=== PATIENT | male | born 1950 | race Caucasian/White ===

== ENCOUNTER 2017-06-01 05:50 | Day surgery (SDC) | payer OTHER ==
[~2017-06-01] VITALS: Ht 175.3 cm; Wt 97.2 kg
[~2017-06-01 05:50] MED LIST: GABA-827 PO; LOSA50TA6 PO; LUBI24CA7 PO; [UNRECOGNIZED DRUG - CODE] SL
[2017-06-01] MEDS ORDERED: LACTATED RINGERS 1,000 ML IV SCH (06:19)
[2017-06-01 06:20] VITALS: BP 141/82
[2017-06-01] MEDS ORDERED: BUPIVACAINE/PF-EPI 0.25% 1:200K ONE (06:55)
[2017-06-01] MEDS ORDERED: THROMBIN 5,000 UNIT VIAL TP ONE (06:56)
[2017-06-01] MEDS ORDERED: LIDOCAINE/PF 0.5% ,50ML ONE (06:56)
[2017-06-01] MEDS ORDERED: VANCOMYCIN 1,000 MG ONE (06:56)
[2017-06-01] MEDS ORDERED: HYDROmorphone 2 MG/ML, 1ML ONE (07:11)
[2017-06-01] MEDS ORDERED: FENTANYL PF 100 MCG/2ML ONE ×2 (07:12→10:17)
[2017-06-01] MEDS ORDERED: MIDAZOLAM 1 MG/ML, 2ML ONE (07:12)
[2017-06-01] MEDS ORDERED: ROCURONIUM 10 MG/ML ONE (07:38)
[2017-06-01] MEDS ORDERED: ONDANSETRON 2MG/ML, 2ML ONE (07:38)
[2017-06-01] MEDS ORDERED: PROPOFOL 10 MG/ML, 20ML ONE (07:38)
[2017-06-01] MEDS ORDERED: hydrALAzine 20 MG/ML, 1ML ONE ×2 (07:38→10:48)
[2017-06-01] MEDS ORDERED: SUCCINYLCHOLINE 20 MG/ML, 10ML ONE (07:38)
[2017-06-01] MEDS ORDERED: DEXAMETHASONE 4 MG/ML, 1ML ONE (07:38)
[2017-06-01] MEDS ORDERED: CEFAZOLIN 1,000 MG ONE (07:38)
[2017-06-01] MEDS ORDERED: EPINEPHRINE 1 MG/ML, 1ML INFIL ONE (08:19)
[2017-06-01] MEDS ORDERED: HYDROmorphone 1 MG/ML, 1ML IV PRN (08:30)
[2017-06-01] MEDS ORDERED: FENTANYL PF 100 MCG/2ML IV PRN (08:30)
[2017-06-01] MEDS ORDERED: OXYcodone 5 MG/5 ML ORAL.SOL UDC PO PRN (08:30)
[2017-06-01] MEDS ORDERED: METOCLOPRAMIDE 5 MG/ML, 2ML IV PRN (08:30)
[2017-06-01] MEDS ORDERED: LABETALOL 5MG/ML, 20ML IV PRN (08:30)
[2017-06-01] MEDS ORDERED: ACETAMINOPHEN 325 MG TABLET PO PRN (08:30)
[2017-06-01] MEDS ORDERED: ONDANSETRON 2MG/ML, 2ML IVPush PRN (08:30)
[2017-06-01] MEDS ORDERED: hydrALAzine 20 MG/ML, 1ML IV PRN (08:30)
[2017-06-01] MEDS ORDERED: ACETAMINOPHEN 325 MG TABLET ONE (10:17)
[2017-06-01] MEDS ORDERED: OXYcodone 5 MG/5 ML ORAL.SOL UDC ONE (10:17)
== END 2017-06-01 12:35 ==
LOC: OUT 05:50
PROVIDERS: ATTEND Orthopaedic Surgery Orthopaedic Surgery of the Spine
DX: M48.06 Spinal stenosis, lumbar region (principal); M54.16 Radiculopathy, lumbar region; M43.16 Spondylolisthesis, lumbar region; I10 Essential (primary) hypertension; G89.29 Other chronic pain; Z98.890 Other specified postprocedural states
CPT/HCPCS: 63047; 72100; J0171; J0330; J0360; J0690; J1100; J1170; J2001; J2250; J2405; J2704; J3370; J7120; J3010

== ENCOUNTER 2020-07-06 08:52 | Day surgery (SDC) | payer MEDICARE, OTHER ==
[~2020-07-06] VITALS: Ht 175.3 cm; Wt 88.7 kg
[~2020-07-06 08:52] MED LIST changes: +BACITRACIN 50,000 UNIT ONE; +BUPIVACAINE 0.25% ONE; +BUPIVACAINE/PF 0.5% ONE; +BUPR750F3 SL; +LOSA50TA14 PO; -LOSA50TA6 PO; +VANCOMYCIN 1,000 MG ONE; -[UNRECOGNIZED DRUG - CODE] SL
[2020-07-06] MEDS ORDERED: CHLORHEXIDINE 15 ML UDC MM ONE (09:30)
[2020-07-06] MEDS ORDERED: LACTATED RINGERS 1,000 ML IV SCH (09:30)
[2020-07-06] MEDS ORDERED: CEVIMELINE PO (09:32)
[2020-07-06] MEDS ORDERED: GABA600T7 PO (09:32)
[2020-07-06] MEDS ORDERED: AMLO10TA8 PO (09:32)
[2020-07-06] MEDS ORDERED: CHLORHEXIDINE 15 ML UDC ONE (09:34)
[2020-07-06 09:48] VITALS: BP 130/80
[2020-07-06] MEDS ORDERED: PROPOFOL 100 ML ONE (10:09)
[2020-07-06] MEDS ORDERED: MIDAZOLAM 1 MG/ML, 2ML ONE (10:10)
[2020-07-06] MEDS ORDERED: FENTANYL PF 250 MCG/5ML ONE (10:10)
[2020-07-06] MEDS ORDERED: CEFAZOLIN 1,000 MG ONE (10:14)
[2020-07-06] MEDS ORDERED: PROPOFOL 10 MG/ML, 20ML ONE (10:14)
[2020-07-06] MEDS ORDERED: NEOSTIGMINE 1 MG/ML, 10ML ONE (10:14)
[2020-07-06] MEDS ORDERED: GLYCOPYRROLATE 0.2MG/1ML, 5ML ONE (10:14)
[2020-07-06] MEDS ORDERED: ROCURONIUM 10MG/ML,5ML ONE (10:14)
[2020-07-06] MEDS ORDERED: HYDROmorphone 1 MG/ML, 1ML INJ IVPush PRN (12:00)
[2020-07-06] MEDS ORDERED: FENTANYL PF 100 MCG/2ML IV PRN (12:00)
[2020-07-06] MEDS ORDERED: MEPERIDINE/PF 25MG/0.5ML IVPush PRN (12:00)
[2020-07-06] MEDS ORDERED: LABETALOL 5MG/ML, 20ML IV PRN (12:00)
[2020-07-06] MEDS ORDERED: morphine SULFATE 10 MG/ML, 1ML IVPush PRN (12:00)
[2020-07-06] MEDS ORDERED: ONDANSETRON 2MG/ML, 2ML IVPush PRN (12:00)
[2020-07-06] MEDS ORDERED: OXYcodone 5 MG/5 ML ORAL.SOL UDC PO PRN (12:00)
[2020-07-06] MEDS ORDERED: hydrALAzine 20 MG/ML, 1ML IV PRN (12:00)
[2020-07-06] MEDS ORDERED: ACETAMINOPHEN 325 MG TABLET PO PRN (12:00)
[2020-07-06] MEDS ORDERED: FENTANYL PF 100 MCG/2ML ONE (12:51)
[2020-07-06] MEDS ORDERED: BUPIVACAINE LIPOSOME/PF 10ML INFIL ONE (12:55)
[2020-07-06] MEDS ORDERED: FENTANYL PF 100 MCG/2ML EPIDPUSH ONE (13:05)
== END 2020-07-06 16:15 | disposition home or self-care (01) ==
LOC: OUT 08:52
PROVIDERS: ATTEND Neurological Surgery
DX: M48.061 Spinal stenosis, lumbar region without neurogenic claudication (principal); Z20.828 Contact with and (suspected) exposure to other viral communicable diseases; M48.07 Spinal stenosis, lumbosacral region; M51.16 Intervertebral disc disorders with radiculopathy, lumbar region; M50.123 Cervical disc disorder at C6-C7 level with radiculopathy; I10 Essential (primary) hypertension; G47.33 Obstructive sleep apnea (adult) (pediatric); M19.90 Unspecified osteoarthritis, unspecified site; Z79.899 Other long term (current) drug therapy; Z98.890 Other specified postprocedural states; Z82.61 Family history of arthritis; Z83.3 Family history of diabetes mellitus; Z82.49 Family history of ischemic heart disease and other diseases of the circulatory system
CPT/HCPCS: 63042; 63044; 72100; 87635; 95938; 95941; J0690; J2250; J2704; J2710; J3010; J3370; J7120